=== PATIENT | female | born 1945 | race Caucasian/White ===

== ENCOUNTER → 2021-08-19 09:41 | Outpatient (CLI) | payer MEDICARE, OTHER, SELFPAY ==
--- NOTE | ~2021-08-19 | XR_ITS ---
EXAMINATION: XR ankle RT min 3V INDICATION: Right bimalleolar ankle fracture TECHNIQUE: Three views of the right ankle are obtained. COMPARISON: None available FINDINGS: There is plate and screw fixation of the distal fibula. There is screw fixation of the medi al malleolus. There is periosteal reaction along the posterior aspect of the distal tibia. A healing posterior malleolar fracture is questioned. A plantar calcaneal enthesophyte is noted. IMPRESSION: 1. Internally stabilized fractures of the lateral and medial malleolus. Possible healing posterior ma lleolus fracture. Reviewed, dictated and finalized at location A. IMPRESSION: 1. Internally stabilized fractures of the lateral and medial malleolus. Possibl e healing posterior malleolus fracture.
== END ==
DX: S82.841A Displaced bimalleolar fracture of right lower leg, initial encounter for closed fracture (principal); X58.XXXA Exposure to other specified factors, initial encounter
CPT/HCPCS: 73610

== ENCOUNTER → 2021-09-12 09:52 | Outpatient (CLI) | payer MEDICARE, OTHER, SELFPAY ==
--- NOTE | ~2021-09-12 | XR_ITS ---
EXAMINATION: XR ankle RT min 3V INDICATION: Bimalleolar fracture follow-up TECHNIQUE: Three views of the right ankle are obtained. COMPARISON: 08/19/2021 FINDINGS: Again noted are plate and screw fixation of the right distal fibula and screw fixation of t he medial malleolus. Periosteal reaction along the posterior aspect of the distal tibia is not signif icantly changed. There appears to be a healing posterior malleolus fracture. A plantar calcaneal enth esophyte is noted. IMPRESSION: 1. Internally stabilized fractures of the medial and lateral malleolar and possible healing posterior malleolus fracture. Reviewed, dictated and finalized at location A. IMPRESSION: 1. Internally stabilized fractures of the medial and lateral malleolar and poss ible healing posterior malleolus fracture.
== END ==
DX: S82.841A Displaced bimalleolar fracture of right lower leg, initial encounter for closed fracture (principal)
CPT/HCPCS: 73610